=== PATIENT | male | born 1990 | race Two or more races ===

== ENCOUNTER 2018-09-19 22:24 | Inpatient (IN) | payer SELFPAY ==
[~2018-09-19] VITALS: Ht 170.2 cm; Wt 65.8 kg
[2018-09-19] MEDS ORDERED: ACETAMINOPHEN 325MG TABLET PO STA (23:53)
[2018-09-19] MEDS ORDERED: ONDANSETRON HCL 4MG/2ML INJ IV STA (23:53)
[2018-09-20] MEDS ORDERED: CEFTRIAXONE 1 G PREMIX 50 ML IV ONE
[2018-09-20] MEDS ORDERED: SODIUM CHLORIDE 0.9% 1000ML BAG (SEPSIS BOLUS) IV ONE
[2018-09-20] MEDS ORDERED: AZITHROMYCIN 500 MG in DEXT 5% WATER 250 ML IV ONE ×2
[2018-09-20 00:31] LABS: BASOPHILS % 0.5 % (0.0-2.0); HEMOGLOBIN. 13.5 g/dL (14.0-18.0); LYMPHOCYTES % 9.1 % (20.0-50.0); MEAN CORPUSCULAR HEMOGLOBIN 28.4 pg (28.0-32.0); MEAN CORPUSCULAR VOLUME 83.9 fL (80.0-94.0); MEAN PLATELET VOLUME 8.3 fl (7.4-10.4); MONOCYTES % 5.4 % (2.0-8.0); PLATELET 423 x1000/uL (130-400); RED BLOOD CELL COUNT 4.77 mill/uL (4.7-6.1); RED CELL DISTRIBUTION WIDTH 12.4 % (11.6-14.6)
[2018-09-20 00:36] LABS: CHLORIDE 94 mEq/L (98-107)
[2018-09-20 01:57] LABS: CLARITY URINE CLEAR (CLEAR); COLOR URINE DARK YELLOW (YELLOW); KETONES URINE 3+ (NEGATIVE); LEUKOCYTE ESTERASE URINE NEGATIVE (NEGATIVE); NITRITE URINE NEGATIVE (NEGATIVE); OCCULT BLOOD URINE NEGATIVE (NEGATIVE); PH URINE >=9.0 (4.5-8.0); PROTEIN URINE 2+ (NEGATIVE); SPECIFIC GRAVITY URINE 1.021 (1.005-1.030)
[2018-09-20 02:06] LABS: *AMPHETAMINES SCREEN URINE NEGATIVE (NEGATIVE); *BARBITURATES SCREEN URINE NEGATIVE (NEGATIVE); *BENZODIAZEPINES SCREEN URINE NEGATIVE (NEGATIVE); *COCAINE SCREEN URINE NEGATIVE (NEGATIVE); METHADONE URINE SCREEN NEGATIVE (NEGATIVE)
[2018-09-20 02:07] LABS: CANNABINOID URINE SCREEN PRESUMTIVE POSITIVE (NEGATIVE); OPIATES URINE SCREEN NEGATIVE (NEGATIVE); PHENCYCLIDINE URINE SCREEN NEGATIVE (NEGATIVE)
[2018-09-20 04:00] VITALS: BP 95/59
[2018-09-20 04:42] VITALS: BP 95/59
[2018-09-20] MEDS ORDERED: ALBU6.7H9 IH (05:23)
[2018-09-20] MEDS ORDERED: AZITHROMYCIN 500 MG in DEXT 5% WATER 250 ML IV SCH (06:00)
[2018-09-20] MEDS ORDERED: DOCUSATE SODIUM 100MG CAPSULE PO PRN (06:00)
[2018-09-20] MEDS ORDERED: CLONIDINE 0.1MG TABLET PO PRN (06:00)
[2018-09-20] MEDS ORDERED: ONDANSETRON HCL 4MG/2ML INJ IV PRN (06:00)
[2018-09-20] MEDS ORDERED: GUAIFENESIN 200MG/10ML SUGAR FREE UDC PO PRN (06:00)
[2018-09-20] MEDS ORDERED: IPRATROPIUM/ALBUTEROL 0.5-3(2.5)MG/3ML NEB INH PRN (06:00)
[2018-09-20] MEDS ORDERED: HYDROCODONE/ACETAMINOPHEN 10/325MG TABLET PO PRN (06:00)
[2018-09-20] MEDS ORDERED: HYDRALAZINE 20MG/ML VIAL IV PRN (06:00)
[2018-09-20] MEDS ORDERED: LORAZEPAM 2MG/ML CPJ IV PRN (06:00)
[2018-09-20] MEDS ORDERED: HYDROMORPHONE HCL/PF 2MG/ML CPJ IV PRN (06:00)
[2018-09-20] MEDS ORDERED: MAGNESIUM/ALUMINUM HYDROXIDE/SIMETHICONE 30ML UDC PO PRN (06:00)
[2018-09-20] MEDS ORDERED: POTASSIUM CHLORIDE 20MEQ TABLET SR PO SCH (06:15)
[2018-09-20] MEDS: SODIUM CHLORIDE 0.9% INJ 3ML FLUSH IVF SCH ×3 (07:12→21:17)
[2018-09-20] MEDS: SODIUM CHLORIDE 0.9% 1,000 ML IV SCH ×2 (07:13→18:40)
[2018-09-20 08:00] VITALS: BP 92/53
[2018-09-20] MEDS: ACETAMINOPHEN 325MG TABLET PO PRN ×2 (08:37→17:31)
[2018-09-20 09:22] LABS: CREATINE KINASE 86 IU/L (39-308)
[2018-09-20 09:23] LABS: CREATINE KINASE MB FRACTION < 1.0 ng/mL (0.5-3.6)
[2018-09-20 12:00] VITALS: BP 86/47
[2018-09-20] MEDS ORDERED: LEVOFLOXACIN 750MG PREMIX 150 ML IV SCH (13:30)
[2018-09-20] MEDS ORDERED: SODIUM CHLORIDE 10% FOR INH 15ML VIAL NEB INH SCH (14:00)
[2018-09-20 16:00] VITALS: BP 90/50
[2018-09-20] MEDS ORDERED: CEFTRIAXONE 1 G PREMIX 50 ML IV SCH (16:30)
[2018-09-20 16:34] LABS: CREATINE KINASE 86 IU/L (39-308)
[2018-09-20 16:35] LABS: CREATINE KINASE MB FRACTION < 1.0 ng/mL (0.5-3.6)
[2018-09-20 18:31] VITALS: BP 93/47
[2018-09-20] MEDS: CEFTRIAXONE 1 G PREMIX 50 ML IV SCH (20:31)
[2018-09-20] MEDS: AZITHROMYCIN 500 MG in DEXT 5% WATER 250 ML IV SCH (21:17)
[2018-09-21] VITALS (7 sets, daily range): BP systolic 97–127; BP diastolic 50–68
[2018-09-21] MEDS: SODIUM CHLORIDE 0.9% 1,000 ML IV SCH ×3 (03:00→22:17)
[2018-09-21] MEDS: SODIUM CHLORIDE 0.9% INJ 3ML FLUSH IVF SCH ×3 (06:00→20:57)
[2018-09-21 07:32] LABS: CHLORIDE 104 mEq/L (98-107)
[2018-09-21 07:36] LABS: BASOPHILS % 0.2 % (0.0-2.0); EOSINOPHILS % 0.1 % (0.0-5.0); HEMOGLOBIN. 10.9 g/dL (14.0-18.0); LYMPHOCYTES % 9.9 % (20.0-50.0); MEAN CORPUSCULAR HEMOGLOBIN 28.5 pg (28.0-32.0); MEAN CORPUSCULAR VOLUME 86.1 fL (80.0-94.0); MEAN PLATELET VOLUME 8.8 fl (7.4-10.4); MONOCYTES % 5.5 % (2.0-8.0); NEUTROPHILS % 84.3 % (40.0-76.0); PLATELET 313 x1000/uL (130-400); RED BLOOD CELL COUNT 3.84 mill/uL (4.7-6.1); RED CELL DISTRIBUTION WIDTH 12.3 % (11.6-14.6)
[2018-09-21 07:51] LABS: T4 FREE 1.44 ng/dL (0.76-1.46)
[2018-09-21] MEDS: ACETAMINOPHEN 325MG TABLET PO PRN ×2 (09:38→20:57)
[2018-09-21] MEDS: CEFTRIAXONE 1 G PREMIX 50 ML IV SCH (20:18)
[2018-09-21] MEDS: AZITHROMYCIN 500 MG in DEXT 5% WATER 250 ML IV SCH (20:57)
[2018-09-22 04:15] VITALS: BP 110/62
[2018-09-22] MEDS: SODIUM CHLORIDE 0.9% INJ 3ML FLUSH IVF SCH ×3 (05:14→21:02)
[2018-09-22 07:20] LABS: HIV SCREEN 4G Non Reactive (Non Reactive)
[2018-09-22 08:00] VITALS: BP 106/63
[2018-09-22] MEDS: SODIUM CHLORIDE 0.9% 1,000 ML IV SCH ×2 (08:15→20:01)
[2018-09-22] MEDS: ACETAMINOPHEN 325MG TABLET PO PRN (09:20)
[2018-09-22 12:00] VITALS: BP 94/45
[2018-09-22 15:40] VITALS: BP 116/64
[2018-09-22 20:00] VITALS: BP 110/64
[2018-09-22] MEDS: CEFTRIAXONE 1 G PREMIX 50 ML IV SCH (20:01)
[2018-09-22] MEDS: AZITHROMYCIN 500 MG in DEXT 5% WATER 250 ML IV SCH (21:00)
[2018-09-23] VITALS (7 sets, daily range): BP systolic 103–135; BP diastolic 53–102
[2018-09-23] MEDS: SODIUM CHLORIDE 0.9% 1,000 ML IV SCH ×2 (04:52→15:32)
[2018-09-23] MEDS: SODIUM CHLORIDE 0.9% INJ 3ML FLUSH IVF SCH ×3 (04:53→21:17)
[2018-09-23 06:30] LABS: CHLORIDE 107 mEq/L (98-107)
[2018-09-23 06:53] LABS: BASOPHILS % 0.6 % (0.0-2.0); EOSINOPHILS % 2.3 % (0.0-5.0); HEMOGLOBIN. 11.1 g/dL (14.0-18.0); LYMPHOCYTES % 16.1 % (20.0-50.0); MEAN CORPUSCULAR HEMOGLOBIN 28.5 pg (28.0-32.0); MEAN CORPUSCULAR VOLUME 84.9 fL (80.0-94.0); MEAN PLATELET VOLUME 8.7 fl (7.4-10.4); MONOCYTES % 5.1 % (2.0-8.0); NEUTROPHILS % 75.9 % (40.0-76.0); PLATELET 366 x1000/uL (130-400); RED BLOOD CELL COUNT 3.89 mill/uL (4.7-6.1); RED CELL DISTRIBUTION WIDTH 12.5 % (11.6-14.6)
[2018-09-23 15:06] LABS: QFT MITOGEN VALUE 2.02 IU/mL (.); QFT TB GOLD PLUS Negative (Negative); QFT TB1 AG VALUE 0.02 IU/mL (.)
[2018-09-23] MEDS: CEFTRIAXONE 1 G PREMIX 50 ML IV SCH (21:17)
[2018-09-23] MEDS: AZITHROMYCIN 500 MG TABLET PO SCH (23:54)
[2018-09-24] VITALS: BP 104/55
[2018-09-24] MEDS: SODIUM CHLORIDE 0.9% 1,000 ML IV SCH ×3 (03:57→22:06)
[2018-09-24 04:00] VITALS: BP 96/50
[2018-09-24] MEDS: SODIUM CHLORIDE 0.9% INJ 3ML FLUSH IVF SCH ×3 (06:11→22:06)
[2018-09-24 08:00] VITALS: BP 122/68
[2018-09-24 12:21] VITALS: BP 106/68
[2018-09-24 16:09] VITALS: BP 106/65
[2018-09-24 20:00] VITALS: BP 104/62
[2018-09-24] MEDS: AZITHROMYCIN 500 MG TABLET PO SCH (22:06)
[2018-09-24] MEDS: METRONIDAZOLE 500MG TABLET PO SCH (22:06)
[2018-09-24] MEDS: CEFTRIAXONE 1 G PREMIX 50 ML IV SCH (22:07)
[2018-09-25] VITALS: BP 110/52
[2018-09-25 04:00] VITALS: BP 108/50
[2018-09-25] MEDS: SODIUM CHLORIDE 0.9% INJ 3ML FLUSH IVF SCH (05:23)
[2018-09-25 08:00] VITALS: BP 102/63
[2018-09-25] MEDS: METRONIDAZOLE 500MG TABLET PO SCH (08:46)
[2018-09-25 10:12] VITALS: BP 102/63
[2018-09-25 17:11] LABS: HISTOPLASMA ABS QT DID Negative (Neg:<1:1)
== END 2018-09-25 14:05 | disposition home or self-care (01) | DRG 720 ==
LOC: ER 22:24 → 5WST 09-20 03:35 → EDBEDREQTM 09-20 03:36 → EDBEDREQ 09-20 03:36 → EDBEDREQDT 09-20 03:36 → ENRESERV 09-20 03:49 → 8WST 09-20 18:33
PROVIDERS: ADMIT Internal Medicine; ATTEND Internal Medicine
DX: A41.9 Sepsis, unspecified organism (principal); J96.00 Acute respiratory failure, unspecified whether with hypoxia or hypercapnia; E46 Unspecified protein-calorie malnutrition; J18.8 Other pneumonia, unspecified organism; D64.9 Anemia, unspecified; A15.9 Respiratory tuberculosis unspecified; E86.0 Dehydration; E87.6 Hypokalemia; F12.90 Cannabis use, unspecified, uncomplicated; F17.210 Nicotine dependence, cigarettes, uncomplicated; J45.909 Unspecified asthma, uncomplicated; N28.9 Disorder of kidney and ureter, unspecified; Z79.51 Long term (current) use of inhaled steroids; Z79.899 Other long term (current) drug therapy; Z71.6 Tobacco abuse counseling; Z68.22 Body mass index [BMI] 22.0-22.9, adult
CPT/HCPCS: 36415; 71045; 71250; 74176; 80048; 80305; 82550; 82553; 83605; 84145; 84439; 84443; 84484; 86480; 86592; 86635; 86698; 87070; 87116; 87389; 87899; 93005; 94640; 96365; 96375; 99285; J0456; J0696; J1956; J2405; J7030; J7040; J7060; J7131; J7620

== ENCOUNTER 2024-04-10 06:44 | Emergency (ER) | payer SELFPAY ==
[~2024-04-10] VITALS: Ht 175.3 cm; Wt 75.0 kg
[~2024-04-10 06:44] MED LIST: ALBU6.7H3 IH
[2024-04-10 07:20] LABS: CHLORIDE 108 mEq/L (98-107); SODIUM 139 mEq/L (136-145)
[2024-04-10 07:21] LABS: CARBON DIOXIDE 24 mEq/L (21-32)
[2024-04-10 07:22] LABS: CALCIUM 9.6 mg/dL (8.7-10.4)
[2024-04-10 07:26] LABS: CREATININE 0.9 mg/dL (0.6-1.3); GLUCOSE 88 mg/dL (70-105)
[2024-04-10 07:27] LABS: BASOPHILS % 1.2 % (0.0-2.0); HEMATOCRIT. 43.5 % (42.0-52.0); HEMOGLOBIN. 14.8 g/dL (14.0-18.0); LYMPHOCYTES % 31.6 % (20.0-50.0); MEAN CORPUSCULAR HEMOGLOBIN 29.5 pg (28.0-32.0); MEAN CORPUSCULAR HGB CONC 34.1 g/dL (31.0-37.0); MEAN CORPUSCULAR VOLUME 86.6 fL (80.0-94.0); MEAN PLATELET VOLUME 8.5 fl (7.4-10.4); MONOCYTES % 4.1 % (2.0-8.0); NEUTROPHILS % 55.1 % (40.0-76.0); PLATELET 293 x1000/uL (130-400); RED BLOOD CELL COUNT 5.02 mill/uL (4.7-6.1); RED CELL DISTRIBUTION WIDTH 13.3 % (11.6-14.6); UREA NITROGEN BLOOD 13 mg/dL (9-23); WHITE BLOOD COUNT 7.2 x1000/uL (4.5-11.0)
[2024-04-10 07:29] LABS: TROPONIN I HIGH SENSITIVITY < 4 ng/L (3.0-53)
[2024-04-10] MEDS: PREDNISONE 20MG TABLET PO STA (07:55)
[2024-04-10] MEDS ORDERED: P20 MT (08:05)
[2024-04-10] MEDS ORDERED: ALBU18HF2 IH (08:05)
[2024-04-10] MEDS: IPRATROPIUM BROMIDE (0.02%) 0.5MG/2.5ML NEB HHN STA (08:12)
[2024-04-10] MEDS: ALBUTEROL (0.083%) 2.5MG/3ML NEB HHN STA (08:13)
[2024-04-10 08:15] VITALS: PULSE 82; RESP 20; O2SAT 97
[2024-04-10 09:53] VITALS: BP 128/78; PULSE 79; RESP 18; TEMP 36.72516; O2SAT 99
== END 2024-04-10 09:54 | disposition home or self-care (01) ==
LOC: ER 07:04
DX: J45.901 Unspecified asthma with (acute) exacerbation (principal)
CPT/HCPCS: 80048; 85025; 84484; 36415; 71045; 94640; 93005; 99285; J7512; Z7610 ×3